=== PATIENT | female | born 1945 | race American Indian/Alaskan Native ===

== ENCOUNTER 2020-01-11 10:00 | Inpatient (IN) | payer MEDICARE ==
[2020-01-11] MEDS ORDERED: cefTRIAXone/NS 1 GM/50 ML 1 GM/50 ML BAG IV ONE (14:39)
[2020-01-11] MEDS ORDERED: LIDOCAINE 2%/EPINEPHRINE 1:100,000 VIAL (20 ML) INFILTRATI ONE (16:33)
[2020-01-11] MEDS ORDERED: ASPIRIN 325 MG TAB ONE (17:02)
[2020-01-11] MEDS ORDERED: ONDANSETRON 4 MG/2 ML INJ IV PRN (19:53)
[2020-01-11] MEDS ORDERED: ALBUTEROL 2.5 MG/3 ML NEBU IH PRN (19:53)
--- NOTE | 2020-01-11 19:53 | History and Physical Report ---
History of Present Illness Chief complaint: She is more confused History of present illness: 74 YO Female with HTN, CAD S/P CABG, HLD, DM presents to ED for evaluation. Patient is confused and lethargic at the time of my evaluation and is unable to provide history. Patient history obtained from family who is at the bedside during exam and interview. As per family the patient had experienced increased confusion, as well as increased agitation over the past 2 weeks with worsening symptoms over the past 4 days. Patient is currently dependent 6/6 for assistance with activities of daily living, and has increased bedbound status with the palliative performance score of 40%. EMS was notified and upon arrival the patient was found to be in distress and simply transported to [facility] for further care and evaluation. Patient seen and evaluated in the emergency department. Lab and imaging studies reviewed. Patient was found to have metabolic encephalopathy, urinary tract infection, as well as volume depletion. Patient also exhibits findings consistent with vascular dementia with behavioral disturbance. Patient admitted to medical floor and initiated on IV antibiotic therapy. No reports of fever, chills, chest pain, palpitation, productive cough, skin rash, recent ill contacts, or known exposure to COVID-19. Advanced care planning conducted in ED. H Past History Past Medical History: CAD, diabetes, hypertension, hyperlipidemia, other (See HPI) Past Surgical History: appendectomy, cholecystectomy, CABG, , Other (Pacemaker placement) Social history: single. denies: smoking, alcohol abuse, prescription drug abuse Family history: diabetes, hypertension Review of Systems ROS unobtainable: due to mental status Exam - Constitutional General appearance: Present: mild distress - EENT Eyes: Present: PERRL ENT: clear oral mucosa, hearing decreased - Neck Neck: Present: supple, normal ROM - Respiratory Respiratory effort: normal Respiratory: bilateral: CTA - Cardiovascular Heart Sounds: Present: S1 & S2. Absent: rub, click - Extremities Extremities: pulses symmetrical, No edema Peripheral Pulses: within normal limits - Abdominal General gastrointestinal: Present: soft, non-tender, non-distended, normal bowel sounds Female genitourinary: Present: normal - Integumentary Integumentary: Present: clear, warm, dry - Musculoskeletal Musculoskeletal: gait normal, strength equal bilaterally - Psychiatric Psychiatric: appropriate mood/affect, intact judgment & insight - Neurologic Neurologic: CNII-XII intact, moves all extremities Assessment and Plan - Patient Problems (1) Metabolic encephalopathy Current Visit: Yes Status: Acute Plan to address problem: CT head, neuro check, seizure precautions, aspiration precautions, fall precautions, treat urinary tract infection, IV fluid resuscitation therapy, (2) Urinary tract infection Current Visit: Yes Status: Acute Qualifiers: Encounter type: initial encounter Plan to address problem: CBC, CMP, urinalysis, IV antibiotic therapy, (3) Volume depletion Current Visit: Yes Status: Acute Plan to address problem: IV fluid resuscitation therapy, encourage free water intake when awake and alert only. (4) Vascular dementia with behavioral disturbance Current Visit: Yes Status: Acute Plan to address problem: Verbal prompting, verbal redirection, benzodiazepine therapy as clinically indicated. (5) Cerebral atherosclerosis Current Visit: Yes Status: Acute Plan to address problem: Supportive care, antiplatelet therapy, risk factor reduction. (6) DVT prophylaxis Current Visit: Yes Status: Acute Plan to address problem: SCD to bilateral lower extremities while in bed, prophylactic anticoagulation.
[2020-01-12] MEDS: ACETAMINOPHEN 325 MG TAB PO PRN ×2 (05:41→15:53)
[2020-01-12] MEDS: VALPROIC ACID 250 MG CAP PO SCH ×3 (05:42→21:49)
[2020-01-12] MEDS ORDERED: ONDANSETRON 4 MG/2 ML INJ IV PRN (07:52)
--- NOTE | 2020-01-12 07:52 | Progress Note ---
Assessment and Plan Assessment and plan: 74 YO Female with HTN, CAD S/P CABG, HLD, DM presents to ED for evaluation. Patient is confused and lethargic at the time of my evaluation and is unable to provide history. Patient history obtained from family who is at the bedside during exam and interview. As per family the patient had experienced increased confusion, as well as increased agitation over the past 2 weeks with worsening symptoms over the past 4 days. Patient is currently dependent 6/6 for assistance with activities of daily living, and has increased bedbound status with the palliative performance score of 40%. EMS was notified and upon arrival the patient was found to be in distress and simply transported to [facility] for further care and evaluation. Patient seen and evaluated in the emergency department. Lab and imaging studies reviewed. Patient was found to have metabolic encephalopathy, urinary tract infection, as well as volume depletion. Patient also exhibits findings consistent with vascular dementia with behavioral disturbance. Patient admitted to medical floor and initiated on IV antibiotic therapy. No reports of fever, chills, chest pain, palpitation, productive cough, skin rash, recent ill contacts, or known exposure to COVID-19. Advanced care planning conducted in ED. Acute chest pain secondary to angina: Patient with significant cardiac history acute metabolic encephalopathy now resolving Dysuria with possible acute cystitis Volume depletion: Per son patient drinks no water Vascular dementia with behavioral disturbance Cerebral atherosclerosis Possible seizure disorder patient is on Keppra Gait abnormality requires a walker. 01/12/20: complains of Left Flank pain, while she says that this is intermittent and rates it 5/10 in intensity she denies any dysuria or fever. She did not mention abdominal pain or chest pain but when I asked her she says it is all of it. I did call her son who confirms that the patient is ambulatory with and without a walker but has recurrent chest discomfort prompting presentation to the ED yesterday as the pain was 10/10 according to her at home. She normally follows at [facility]. We will proceed with cardiology consultation to evaluate chest pain and cardiac work-up protocol. We will request records from [place] facilities Will resume home medications considering elevated blood pressure this morning. Continue antibiotics for possible UTI. If improved in a.m. as anticipated will likely be able to discharge. Plan of care discussed with the son. DVT and GI prophylaxis History Interval history: Patient seen and examined today, complains of Left Flank pain, while she says th at this is intermittent and rates it 5/10 in intensity she denies any dysuria or fever. She did not mention abdominal pain or chest pain but when I asked her she says it is all of it. I did call her son who confirms that the patient is ambulatory with and without a walker but has recurrent chest discomfort prompting presentation to the ED yesterday as the pain was 10/10 according to her at home. She normally follows at [facility] Physical - Physical exam Narrative exam: VITAL SIGNS: Reviewed. GENERAL: The patient appears normally developed, otherwise mildly lethargic. Vital signs as documented. HEAD: No signs of head trauma. EYES: Pupils are equal. Extraocular motions intact. EARS: Hearing grossly intact. MOUTH: Oropharynx is normal. NECK: No adenopathy, no JVD. CHEST: Chest with clear breath sounds bilaterally. No wheezes, rales, or rhonchi. CARDIAC: Regular rate and rhythm. S1 and S2, without murmurs, gallops, or rubs. VASCULAR: No Edema. Peripheral pulses normal and equal in all extremities. ABDOMEN: Left flank tenderness. Soft, no gross abdominal tenderness. And non distended. No rebound or guarding, and no masses palpated. Bowel Sounds normal. MUSCULOSKELETAL: Good range of motion of all major joints. Extremities without clubbing, cyanosis or edema. NEUROLOGIC EXAM: Alert and oriented x 3 No focal sensory or strength deficits. Speech normal. Follows commands. PSYCHIATRIC: Mood normal. SKIN: detail exam as documented in skin assessment - Constitutional Vitals: Temp Pulse Resp BP Pulse Ox 97.8 F 60 16 183/79 99 01/12/20 05:04 01/12/20 05:04 01/12/20 05:04 01/12/20 05:04 01/12/20 05:04 General appearance: Present: mild distress Results - Labs Microbiology: Microbiology 01/11/20 11:52 Peripheral/Venous Blood Culture - Preliminary Culture in Progress 01/11/20 11:52 Peripheral/Venous Blood Culture - Preliminary Culture in Progress Ga/IV: Voiding Method Bedpan IV Catheter Type [Left INT / Saline Lock External Jugular] Active Medications - Current Medications Current Medications: Generic Name Dose Route Start Last Admin Trade Name Freq PRN Reason Stop Dose Admin Acetaminophen 650 mg 01/11/20 19:53 01/12/20 05:41 Tylenol PO 650 mg Q4H PRN Administration Pain MILD(1-3)/Fever >100.5/BONNER Albuterol 2.5 mg 01/11/20 19:53 Proventil IH Q4HRT PRN Shortness Of Breath Atorvastatin Calcium 40 mg 01/12/20 10:00 Lipitor PO DAILY [facility] Carvedilol 6.25 mg 01/12/20 10:00 Coreg PO BID [facility] Furosemide 20 mg 01/12/20 10:00 Lasix PO QDAY [facility] Heparin Sodium (Porcine) 5,000 unit 01/12/20 10:00 Heparin SUB-Q Q12HR [facility] Ceftriaxone Sodium 1 gm in 50 mls @ 100 mls/hr 01/12/20 10:00 Rocephin/Ns 1 Gm/50 Ml IV Q24HR [facility] Protocol Levetiracetam 1,500 mg 01/12/20 10:00 Keppra PO BID [facility] Lorazepam 1 mg 01/12/20 10:00 Ativan PO BID [facility] Melatonin 10 mg 01/12/20 22:00 Melatonin PO QHS [facility] Metformin HCl 500 mg 01/12/20 08:00 Glucophage PO QDDIAB [facility] Miscellaneous Medication 8 mg 01/12/20 22:00 Ramelteon PO HS [facility] Naproxen 500 mg 01/12/20 10:00 Naproxen PO BID [facility] Nitroglycerin 0.4 mg 01/12/20 08:00 Nitrostat SL PRN [facility] Ondansetron HCl 4 mg 01/11/20 19:53 Zofran IV Q8H PRN Nausea And Vomiting Pantoprazole Sodium 40 mg 01/12/20 10:00 Protonix PO DAILY [facility] Ranolazine 500 mg 01/12/20 10:00 Ranexa Er PO BID [facility] Sodium Chloride 10 ml 01/11/20 22:00 01/12/20 03:39 Sodium Chloride Flush Syringe 10 Ml IV 10 ml BID [facility] Administration Sodium Chloride 10 ml 01/11/20 19:53 Sodium Chloride Flush Syringe 10 Ml IV PRN PRN LINE FLUSH Trazodone HCl 25 mg 01/12/20 22:00 Desyrel PO HS [facility] Valproic Acid 750 mg 01/12/20 06:00 01/12/20 05:42 Depakene PO 750 mg Q8HR [facility] Administration
[2020-01-12] MEDS: metFORMIN 500 MG TAB PO SCH (10:43)
[2020-01-12] MEDS: FUROSEMIDE 20 MG TAB PO SCH ×2 (10:44→14:51)
[2020-01-12] MEDS: carvediloL 6.25 MG TAB PO SCH ×3 (10:44→21:49)
[2020-01-12] MEDS: NAPROXEN 500 MG TAB PO SCH ×2 (10:44→14:49)
[2020-01-12] MEDS: levETIRAcetam 500 MG TAB PO SCH ×3 (10:44→21:49)
[2020-01-12] MEDS: HEPARIN 5,000 UNIT/1 ML VIAL SUB-Q SCH ×2 (10:44→21:49)
[2020-01-12] MEDS: LORazepam 1 MG TAB PO SCH ×2 (10:44→21:55)
[2020-01-12] MEDS: PANTOPRAZOLE 40 MG TAB PO SCH ×2 (10:45→14:51)
[2020-01-12] MEDS: RANOLAZINE ER 500 MG TAB 12HR PO SCH ×3 (10:45→21:49)
--- NOTE | 2020-01-12 11:33 | Consultation ---
History of Present Illness Consult date: 01/12/20 Requesting physician: JOHNNY CHAMBERS Consult reason: chest pain History of present illness: The pt is a 74 YO female with a past medical history of HTN, CAD S/P CABG, HLD, DM. She is previously unknown to our practice. She is confused and a poor historian, HPI obtained per the chart. She presented for evaluation of AMS. As per family the patient had experienced increased confusion, as well as increased agitation over the past 2 weeks with worsening symptoms over the past 4 days prior to arrival. EMS was notified and upon arrival the patient was found to be in distress and simply transported to [facility] for further care and evaluation. Patient seen and evaluated in the emergency department. Lab and imaging studies reviewed. Patient was found to have metabolic encephalopathy, urinary tract infection, as well as volume depletion. Patient also exhibits findings consistent with vascular dementia with behavioral disturbance. Patient admitted to medical floor and initiated on IV antibiotic therapy. Cardiology has been consulted for evaluation of ? chest pain, although no reports of fever, chills, chest pain, palpitation, productive cough, skin rash, recent ill contacts, or known exposure to COVID-19. Past History Past Medical History: CAD, diabetes, hypertension, hyperlipidemia, other (See HPI) Past Surgical History: appendectomy, cholecystectomy, CABG, , Other (Pacemaker placement) Social history: single. denies: smoking, alcohol abuse, prescription drug abuse Family history: diabetes, hypertension Medications and Allergies Allergies Allergy/AdvReac Type Severity Reaction Status Date / Time codeine Allergy Mild Itching Verified 01/12/20 03:31 Penicillins AdvReac Severe Swelling Verified 01/12/20 02:52 Home Medications Medication Instructions Recorded Confirmed Last Taken Type Furosemide [Lasix] 20 mg PO QDAY 01/11/20 01/11/20 Unknown History LORazepam [Lorazepam] 1 mg PO BID 01/11/20 01/11/20 Unknown History Naproxen [Naprosyn TAB] 500 mg PO BID 01/11/20 01/11/20 Unknown History Nitroglycerin [Nitrostat] 0.4 mg SUBLINGUAL PRN 01/11/20 01/11/20 Unknown History Pantoprazole [Protonix TAB] 40 gm PO DAILY 01/11/20 01/11/20 Unknown History Ranolazine ER [Ranexa ER] 500 mg PO BID 01/11/20 01/11/20 Unknown History Valproic Acid [Depakene] 750 mg PO Q8HR 01/11/20 01/11/20 Unknown History levETIRAcetam [Keppra TAB] 1,500 mg PO BID 01/11/20 01/11/20 Unknown History metFORMIN [Glucophage] 500 mg PO QDAY 01/11/20 01/11/20 Unknown History traZODone [Desyrel] 25 mg PO HS 01/11/20 01/11/20 Unknown History AtorvaSTATin [Lipitor] 40 mg PO DAILY 01/12/20 01/12/20 Unknown History Ramelteon 8 mg PO HS 01/12/20 01/12/20 Unknown History carvediloL [Coreg] 6.25 mg PO BID 01/12/20 01/12/20 Unknown History Active Meds: Active Medications Acetaminophen (Tylenol) 650 mg PO Q4H PRN PRN Reason: Pain MILD(1-3)/Fever >100.5/BONNER Last Admin: 01/12/20 05:41 Dose: 650 mg Documented by: Albuterol (Proventil) 2.5 mg IH Q4HRT PRN PRN Reason: Shortness Of Breath Atorvastatin Calcium (Lipitor) 40 mg PO DAILY [facility] Last Admin: 01/12/20 10:44 Dose: Not Given Documented by: Carvedilol (Coreg) 6.25 mg PO BID [facility] Last Admin: 01/12/20 10:44 Dose: Not Given Documented by: Furosemide (Lasix) 20 mg PO QDAY [facility] Last Admin: 01/12/20 10:44 Dose: Not Given Documented by: Heparin Sodium (Porcine) (Heparin) 5,000 unit SUB-Q Q12HR [facility] Last Admin: 01/12/20 10:44 Dose: Not Given Documented by: Ceftriaxone Sodium (Rocephin/Ns 1 Gm/50 Ml) 1 gm in 50 mls @ 100 mls/hr IV Q24HR [facility]; Protocol Levetiracetam (Keppra) 1,500 mg PO BID [facility] Last Admin: 01/12/20 10:44 Dose: Not Given Documented by: Lorazepam (Ativan) 1 mg PO BID [facility] Last Admin: 01/12/20 10:44 Dose: Not Given Documented by: Melatonin (Melatonin) 10 mg PO QHS [facility] Metformin HCl (Glucophage) 500 mg PO QDDIAB [facility] Last Admin: 01/12/20 10:43 Dose: Not Given Documented by: Miscellaneous Medication (Ramelteon) 8 mg PO HS [facility] Naproxen (Naproxen) 500 mg PO BID [facility] Last Admin: 01/12/20 10:44 Dose: Not Given Documented by: Nitroglycerin (Nitrostat) 0.4 mg SL PRN [facility] Ondansetron HCl (Zofran) 4 mg IV Q4H PRN PRN Reason: Nausea And Vomiting Pantoprazole Sodium (Protonix) 40 mg PO DAILY [facility] Last Admin: 01/12/20 10:45 Dose: Not Given Documented by: Ranolazine (Ranexa Er) 500 mg PO BID [facility] Last Admin: 01/12/20 10:45 Dose: Not Given Documented by: Sodium Chloride (Sodium Chloride Flush Syringe 10 Ml) 10 ml IV BID [facility] Last Admin: 01/12/20 03:39 Dose: 10 ml Documented by: Sodium Chloride (Sodium Chloride Flush Syringe 10 Ml) 10 ml IV PRN PRN PRN Reason: LINE FLUSH Trazodone HCl (Desyrel) 25 mg PO HS [facility] Valproic Acid (Depakene) 750 mg PO Q8HR [facility] Last Admin: 01/12/20 05:42 Dose: 750 mg Documented by: Review of Systems ROS unobtainable: due to mental status Physical Examination Vital Signs Pulse Resp BP Pulse Ox 68 18 125/60 96 01/11/20 20:36 01/11/20 20:36 01/11/20 20:36 01/11/20 20:36 General appearance: no acute distress HEENT: Positive: PERRL, Normocephaly, Mucus Membranes Moist Neck: Positive: neck supple, trachea midline Cardiac: Positive: Reg Rate and Rhythm, S1/S2 Lungs: Positive: Decreased Breath Sounds Neuro: Positive: Grossly Intact Abdomen: Negative: Tender Skin: Negative: Rash Musculoskeletal: No Pain Extremities: Absent: edema Results - Imaging and Cardiology EKG: report reviewed, image reviewed Assessment and Plan Pt with no current chest pain, ECG with NSR and NAF. Obtain Riley and echocardiogram. Cont current cardiac regimen. Will follow. The patient has been seen in conjunction with Dr. Granado who agrees with the assessment and plan of care. - Patient Problems (1) Altered mental status Current Visit: Yes Status: Acute (2) Urinary tract infection Current Visit: Yes Status: Acute Qualifiers: Encounter type: initial encounter (3) Dementia Current Visit: Yes Status: Suspected (4) CAD (coronary artery disease) Current Visit: Yes Status: Acute (5) History of coronary artery bypass graft Current Visit: Yes Status: Acute (6) HTN (hypertension) Current Visit: Yes Status: Chronic (7) Hyperlipidemia Current Visit: Yes Status: Chronic (8) Diabetes Current Visit: Yes Status: Chronic
[2020-01-12] MEDS: cefTRIAXone/NS 1 GM/50 ML 1 GM/50 ML BAG IV SCH (14:54)
--- NOTE | 2020-01-12 16:34 | Cat Scan Report ---
CT BRAIN: 01/11/2020 INDICATION / CLINICAL INFORMATION: headache . COMPARISON: None available. FINDINGS: BRAIN/INTRACRANIAL STRUCTURES: Unenhanced CT images of the brain demonstrate no evidence of acute int racranial abnormality. Ventricles and sulci are within normal limits of size and shape for a patient of this age. There is no evidence of acute ischemic injury, hemorrhage, or mass. There are no abnormal extra-axial fluid collections. 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 IMPRESSION: No acute abnormality. All CT scans at this location are performed using dose reduction to ALARA by means of automated expos ure control. Signer Name: Fabrice Pichardo MD Signed: 01/11/2020 3:59 PM Workstation Name: [id number]
[2020-01-12] MEDS ORDERED: hydrALAZINE 20 MG/1 ML INJ IV ONE ×2 (20:15→22:44)
[2020-01-12] MEDS ORDERED: RAMELTEON 8 MG PO SCH (22:00)
[2020-01-12] MEDS ORDERED: MELATONIN 5 MG TAB PO SCH (22:00)
[2020-01-12] MEDS ORDERED: MELATONIN 8 MG PO SCH (22:00)
[2020-01-12] MEDS ORDERED: traZODone 50 MG TAB PO SCH (22:00)
[2020-01-13] MEDS: NITROGLYCERIN 0.4 MG TAB SUBL SL SCH ×2 (00:12→00:17)
[2020-01-13] MEDS: NAPROXEN 500 MG TAB PO SCH ×2 (00:42→10:20)
[2020-01-13] MEDS: LORazepam 1 MG TAB PO SCH ×2 (00:42→12:52)
--- NOTE | 2020-01-13 01:16 | XRay Report ---
CHEST 1 VIEW 12:31 AM INDICATION / CLINICAL INFORMATION: Chest pain. COMPARISON: 01/11/2020. FINDINGS: SUPPORT DEVICES: The position of the multilead left subclavian ICD has not changed. HEART / MEDIASTINUM: Median sternotomy and cardiomegaly are again noted. The aorta is normal in calib er. Pulmonary vasculature is normal. LUNGS / PLEURA: No significant pulmonary or pleural abnormality. No pneumothorax. ADDITIONAL FINDINGS: No significant additional findings. IMPRESSION: No acute abnormality or significant change. Signer Name: Addy Giles MD Signed: 01/13/2020 1:11 AM Workstation Name: [id number]
[2020-01-13 03:24] LABS: Hematocrit 33.4 % (30.3-42.9); Hemoglobin 10.6 gm/dl (10.1-14.3); Mean Corpuscular HGB Conc 32 % (30-34); Mean Corpuscular Volume 85 fl (79-97); Platelet Count 166 K/mm3 (140-440); Red Blood Count 3.94 M/mm3 (3.65-5.03); Red Cell Distribution Width 16.5 % (13.2-15.2)
[2020-01-13 03:30] LABS: Calcium 9.4 mg/dL (8.4-10.2)
[2020-01-13] MEDS: VALPROIC ACID 250 MG CAP PO SCH ×2 (06:01→17:53)
--- NOTE | 2020-01-13 09:55 | XRay Report ---
CHEST 1 VIEW INDICATION: CHEST PAIN.. COMPARISON: 01/11/2020 FINDINGS: Support devices: ICD in satisfactory position. Heart: Moderate cardiomegaly status post previous median sternotomy. Lungs/Pleura: No acute air space or interstitial disease. Additional findings: None. IMPRESSION: Moderate cardiomegaly. Signer Name: Yadiel Monge MD Signed: 01/11/2020 2:58 PM Workstation Name: [id number]
[2020-01-13] MEDS ORDERED: ASPIRIN 81 MG TAB CHEW PO SCH (10:00)
[2020-01-13] MEDS: metFORMIN 500 MG TAB PO SCH (10:20)
[2020-01-13] MEDS: FUROSEMIDE 20 MG TAB PO SCH (10:26)
[2020-01-13] MEDS: levETIRAcetam 500 MG TAB PO SCH (10:27)
[2020-01-13] MEDS: carvediloL 6.25 MG TAB PO SCH (10:27)
[2020-01-13] MEDS: RANOLAZINE ER 500 MG TAB 12HR PO SCH (10:30)
--- NOTE | 2020-01-13 10:34 | Progress Note ---
<AMANDO WILKERSON - Last Filed: 01/13/20 10:46> Objective Vital Signs Temp Pulse Resp BP Pulse Ox 01/13/20 10:27 181/68 01/13/20 03:36 97.9 F 72 16 153/55 100 01/13/20 00:29 83 18 104/52 99 01/13/20 00:19 84 18 111/54 100 01/13/20 00:08 78 18 133/58 100 01/12/20 22:41 65 18 165/57 100 01/12/20 20:29 98.0 F 61 18 175/77 98 01/12/20 16:55 98.3 F 58 L 15 191/77 98 01/12/20 11:49 98.0 F 63 16 198/68 98 - Labs and Meds CBC 01/13/20 Range/Units 01:35 WBC 4.9 (4.5-11.0) K/mm3 RBC 3.94 (3.65-5.03) M/mm3 Hgb 10.6 (10.1-14.3) gm/dl Hct 33.4 (30.3-42.9) % Plt Count 166 (140-440) K/mm3 Comprehensive Metabolic Panel 01/13/20 Range/Units 01:35 Sodium 145 (137-145) mmol/L Potassium 3.5 L (3.6-5.0) mmol/L Chloride 104.4 (98-107) mmol/L Carbon Dioxide 26 (22-30) mmol/L BUN 23 H (7-17) mg/dL Creatinine 1.1 (0.6-1.2) mg/dL Glucose 127 H (65-100) mg/dL Calcium 9.4 (8.4-10.2) mg/dL <LINA ROBERTSON - Last Filed: 01/13/20 10:52> Assessment and Plan [facility] records reviewed - pt is followed by Dr. Scott Subramanian. tte done 11/2019 was TDS, showed EF 50%,AV tricuspid and thickened, mild LVH, mild MR. LHC done 11/16/2019 showed LM: patent distal LM stent extending into the LCx, LAD: 100% ostial occlusion, LCx: patent stent from ostial LCx extending into OM1 with 50-60% stenosis at the distal end of the stent in OM1, TELLES to LAD graft: patent, RCA: not injected, known occluded, Vein grafts: not injected, known occluded. Impression: Severe [place] CAD with patent TELLES to LAD graft. 50-60% stenosis of OM post stent. Pt has AICD in situ. Pt with no current chest pain, ECG with NSR and NAF. Trop negative for AMI x 1. Currently stable cardiac status. Cont home current cardiac regimen. Nothing further to add from cardiac perspective at this time. Will sign off. Recommend pt follow up with her primary medical social worker at [facility] within 2 weeks of discharge ([phone]). The patient has been seen in conjunction with Dr. Wilkerson who agrees with the assessment and plan of care. - Patient Problems (1) Altered mental status Current Visit: Yes Status: Acute (2) Urinary tract infection Current Visit: Yes Status: Acute Qualifiers: Encounter type: initial encounter (3) Dementia Current Visit: Yes Status: Suspected (4) CAD (coronary artery disease) Current Visit: Yes Status: Acute (5) History of coronary artery bypass graft Current Visit: Yes Status: Acute (6) Automatic implantable cardioverter-defibrillator in situ Current Visit: Yes Status: Chronic (7) HTN (hypertension) Current Visit: Yes Status: Chronic (8) Hyperlipidemia Current Visit: Yes Status: Chronic (9) Diabetes Current Visit: Yes Status: Chronic Subjective Date of service: 01/13/20 Principal diagnosis: AMS Interval history: Pt resting in bed, more alert today, feeling better, eating breakfast. tele reviewed - in SR HR 70s with intermittent VPacing. Objective Last Vital Signs Temp 97.9 F 01/13/20 03:36 Pulse 72 01/13/20 03:36 Resp 16 01/13/20 03:36 BP 181/68 01/13/20 10:27 Pulse Ox 100 01/13/20 03:36 - Physical Examination General: No Apparent Distress HEENT: Positive: PERRL, Normocephaly, Mucus Membranes Moist Neck: Positive: neck supple, trachea midline Cardiac: Positive: Reg Rate and Rhythm, S1/S2 Lungs: Positive: Decreased Breath Sounds Neuro: Positive: Grossly Intact Abdomen: Negative: Tender Skin: Negative: Rash Musculoskeletal: No Pain Extremities: Absent: edema - Labs and Meds CBC 01/13/20 Range/Units 01:35 WBC 4.9 (4.5-11.0) K/mm3 RBC 3.94 (3.65-5.03) M/mm3 Hgb 10.6 (10.1-14.3) gm/dl Hct 33.4 (30.3-42.9) % Plt Count 166 (140-440) K/mm3 Comprehensive Metabolic Panel 01/13/20 Range/Units 01:35 Sodium 145 (137-145) mmol/L Potassium 3.5 L (3.6-5.0) mmol/L Chloride 104.4 (98-107) mmol/L Carbon Dioxide 26 (22-30) mmol/L BUN 23 H (7-17) mg/dL Creatinine 1.1 (0.6-1.2) mg/dL Glucose 127 H (65-100) mg/dL Calcium 9.4 (8.4-10.2) mg/dL - Imaging and Cardiology EKG: report reviewed, image reviewed
[2020-01-13] MEDS: cefTRIAXone/NS 1 GM/50 ML 1 GM/50 ML BAG IV SCH (10:35)
[2020-01-13] MEDS: PANTOPRAZOLE 40 MG TAB PO SCH (10:35)
[2020-01-13 10:50] LABS: BUN/Creatinine Ratio 26; Blood Urea Nitrogen 31 mg/dL (7-17)
[2020-01-13 10:51] LABS: Alanine Aminotransferase 6 units/L (7-56); Albumin 3.8 g/dL (3.9-5); Calcium 9.7 mg/dL (8.4-10.2); Creatine Kinase MB 2.1 ng/mL (0.0-4.0); Hemolysis Index 3
[2020-01-13 12:01] VITALS: BP 168/68
[2020-01-13] MEDS: HEPARIN 5,000 UNIT/1 ML VIAL SUB-Q SCH (12:52)
--- NOTE | 2020-01-13 14:19 | Discharge Summary ---
Providers - Providers Date of Admission: 01/11/20 19:53 Attending physician: JOHNNY CHAMBERS MD 01/12/20 08:01 Consult to Physician [CONS] Routine Comment: Consulting Provider: DIEUDONNE LE Physician Instructions: Reason For Exam: chest pain Occupational Therapy Evaluate and Treat [CONS] Routine Comment: Reason For Exam: debility Physical Therapy Evaluation and Treat [CONS] Routine Comment: Reason For Exam: debility Primary care physician: [facility] [employer] Hospitalization Reason for admission: Generalized body ache including chest pain Condition: Stable Hospital course: 74 YO Female with HTN, CAD S/P CABG, HLD, DM presents to ED for evaluation. Patient is confused and lethargic at the time of my evaluation and is unable to provide history. Patient history obtained from family who is at the bedside during exam and interview. As per family the patient had experienced increased confusion, as well as increased agitation over the past 2 weeks with worsening symptoms over the past 4 days. Patient is currently dependent 6/6 for assistance with activities of daily living, and has increased bedbound status with the palliative performance score of 40%. EMS was notified and upon arrival the patient was found to be in distress and simply transported to [facility] for further care and evaluation. Patient seen and evaluated in the emergency department. Lab and imaging studies reviewed. Patient was found to have metabolic encephalopathy, urinary tract infection, as well as volume depletion. Patient also exhibits findings consistent with vascular dementia with behavioral disturbance. Patient admitted to medical floor and initiated on IV antibiotic therapy. No reports of fever, chills, chest pain, palpitation, p roductive cough, skin rash, recent ill contacts, or known exposure to COVID-19. Advanced care planning conducted in ED. Acute chest pain secondary to angina: Patient with significant cardiac history acute metabolic encephalopathy now resolving Dysuria with possible acute cystitis Acute metabolic encephalopathy transient.baseline Volume depletion: Per son patient drinks no water Vascular dementia with behavioral disturbance Coronary artery disease status post AICD Cerebral atherosclerosis Possible seizure disorder patient is on Keppra Gait abnormality requires a walker. 01/12/20: complains of Left Flank pain, while she says that this is intermittent and rates it 5/10 in intensity she denies any dysuria or fever. She did not mention abdominal pain or chest pain but when I asked her she says it is all of it. I did call her son who confirms that the patient is ambulatory with and without a walker but has recurrent chest discomfort prompting presentation to the ED yesterday as the pain was 10/10 according to her at home. She normally follows at [facility], [place]. We will proceed with cardiology consultation to evaluate chest pain and cardiac work-up protocol. We will request records from [facility] facilities Will resume home medications considering elevated blood pressure this morning. Continue antibiotics for possible UTI. If improved in a.m. as anticipated will likely be able to discharge. Plan of care discussed with the son. DVT and GI prophylaxis 01/12: Patient was evaluated by cardiology on as noted below. Otherwise she is clinically stable much improved today no further pain. She was treated for 2 days empirically for acute cystitis. Have discussed with the son and informed him of our findings. [facility] records reviewed - pt is followed by Dr. Scott Subramanian. tte done 11/2019 was TDS, showed EF 50%,AV tricuspid and thickened, mild LVH, mild MR. LHC done 11/16/2019 showed LM: patent distal LM stent extending into the LCx, LAD: 100% ostial occlusion, LCx: patent stent from ostial LCx extending into OM1 with 50-60% stenosis at the distal end of the stent in OM1, TELLES to LAD graft: patent, RCA: not injected, known occluded, Vein grafts: not injected, known occluded. Impression: Severe [place] CAD with patent TELLES to LAD graft. 50-60% stenosis of OM post stent. Pt has AICD in situ. Pt with no current chest pain, ECG with NSR and NAF. Trop negative for AMI x 1. Currently stable cardiac status. Cont home current cardiac regimen. Nothing further to add from cardiac perspective at this time. Will sign off. Recommend pt follow up with her primary fish drier at [facility] within 2 weeks of discharge ([phone]). Disposition: [id number] HOME UNDER HOME [facility] Time spent for discharge: 35 minutes Core Measure Documentation - Palliative Care Palliative Care/ Comfort Measures: Not Applicable - Core Measures Any of the following diagnoses?: none Exam - Physical Exam Narrative exam: VITAL SIGNS: Reviewed. GENERAL: The patient appears normally developed, Vital signs as documented. HEAD: No signs of head trauma. EYES: Pupils are equal. Extraocular motions intact. EARS: Hearing grossly intact. MOUTH: Oropharynx is normal. NECK: No adenopathy, no JVD. CHEST: Chest with clear breath sounds bilaterally. No wheezes, rales, or rhonchi. CARDIAC: Regular rate and rhythm. S1 and S2, without murmurs, gallops, or rubs. VASCULAR: No Edema. Peripheral pulses normal and equal in all extremities. ABDOMEN: Left flank tenderness. Soft, no gross abdominal tenderness. And non distended. No rebound or guarding, and no masses palpated. Bowel Sounds normal. MUSCULOSKELETAL: Good range of motion of all major joints. Extremities without clubbing, cyanosis or edema. NEUROLOGIC EXAM: Alert and oriented x 3 No focal sensory or strength deficits. Speech normal. Follows commands. PSYCHIATRIC: Mood normal. SKIN: detail exam as documented in skin assessment - Constitutional Vitals: Temp Pulse Resp BP Pulse Ox 97.9 F 64 20 168/68 100 01/13/20 11:23 01/13/20 11:23 01/13/20 11:23 01/13/20 11:23 01/13/20 11:23 Plan Activity: advance as tolerated, fall precautions Diet: low fat, diabetic Special Instructions: record daily weights, record daily BP diary, record blood sugar diary Additional Instructions: Follow with primary fish drier at [facility] in 1 week Follow up with: PRIMARY CAREMD [Primary Care Provider] - 7 Days Prescriptions: Aspirin [Aspirin BABY CHEW TAB] 81 mg PO QDAY #30 tab.chew Ciprofloxacin HCl [Ciprofloxacin TAB] 500 mg PO Q12HR #6 tab
--- NOTE | 2020-02-26 06:43 | Event Note ---
Date: 01/11/20 Please note that this chart is being documented for the purposes of medical record keeping, this is a duplicate chart from the original downtime chart. Prince Doshi : 1945 date of service: 01/11/2020 The patient was evaluated in the emergency department for symptoms described in the history of present illness. He/she was evaluated in the context of the global COVID-19 pandemic, which necessitated consideration that the patient might be at risk for infection with the virus that causes COVID-19. Institutional protocols and algorithms that pertain to the evaluation of patients at risk for COVID-19 are in a state of rapid change based on information released by regulatory bodies including the CDC and federal and state organizations. These policies and algorithms were followed during the patient's care in the emergency department. Please note that these policies, procedures and recommendations changed on a rapid basis. EMS documentation not available at time of chart dictation Please note at the time of this chart dictation, medical record system is down secondary to mandatory computer maintenance, therefore, we are not able to access patient's electronic medical record This patient is a 74-year-old female. To the best of my recollection, she is not known to myself previously. Past medical history is unclear, it appears that she may have had a sternotomy for uncertain reasons in the past. The patient is presents to the ER today via EMS. Upon my initial evaluation, patient is speaking very softly, and appears to be altered. The patient is not accompanied by friends or family at this time for additional information and collateral information. Nursing team has triage the patient with a complaint of "complains of chest pain radiating to the left arm, beginning this morning. Pain 10 out of 10 positive nausea. She reportedly received aspirin, nitroglyce rin x2 via EMS. When I evaluate the patient, she denies headache, neck pain and chest pain. She complains of abdominal pain. She indicates her abdominal pain is diffuse. She indicates her pain increases with palpation. She does not describe radiation factors. She does not describe aggravating factors otherwise. The patient makes no complaint of urinary symptoms. The patient makes no complaint of focal extremity weakness/numbness. Patient altered, therefore, I am not able to obtain qualitative nature of symptoms, aggravating factors, relieving factors, except as noted. In addition, review of systems is limited secondary to patient's altered mental status. Nursing team informed me that the patient was initially alert, oriented, and then at one point time during her evaluation, began to speak softly, and answer inappropriately. When the patient was informed by nursing team that she would be diagnosed with altered mental status, nursing team reports that the patient's mentation improved. However, the patient's mentation does not improve on my exam. Nursing team also documented an initial GCS of 15. Review of systems: As per history of present illness Physical exam: Blood pressure 158/92. Heart rate 72 bpm. Respirations: 16/min. Pulse ox: 100% on room air. Temperature: 97.8 F. Weight: 125 pounds. Height, 5 pounds, 5 inches. The patient appeared well nourished and normally developed. Vital signs as documented. Head exam is unremarkable. Normocephalic atraumatic No scleral icterus or corneal arcus noted. Neck is without jugular venous distension, thyromegaly there are no meningeal signs, and the neck is nontender. . Lungs are clear to auscultation and percussion. There is reproducible central chest wall tenderness. There are no rales, rhonchi, or wheezes. . Rhythm is regular. First and second heart sounds normal. No murmurs, rubs or gallops. There is mild diffuse abdominal tenderness. There is no right upper quadrant tenderness. There is no pulsatile abdominal mass. There is no rebound. . 2+ pulses noted in the bilateral upper and lower extremities. There is no palpable cord. negative Homans sign. Muscular compartments are soft. The pelvis is stable. 2+ edema noted in the bilateral lower extremity No facial droop. Tongue midline. Patient closes eyes very tightly when I attempt to examine, no obvious proptosis is noted. Sensation is intact to light touch in 4 extremities. Patient moves 4 extremities to command. Patient is able to give her name, year, and location. No skin redness, pus, streaking, erythema, or breakdown. Laboratory studies: Lactic acid: 1.2 mmol/L Sodium: 144 potassium: 3.6 chloride: 104.7 CO2: 31 anion gap: 12 blood urea nitrogen: 31 creatinine: 1.2 glucose: 130 Calcium: 9.7 total bilirubin: 0.2 AST: 10 t:6 total protein: 6.2 Albumin: 3.8 lipase: 30 ethanol: 10 mg/dL, acetaminophen: 5 mcg/mL Salicylate: 0.42 mg/dL CK: 2.14 ng/mL proBNP: 888.4 pg/mL TSH: 0.768 Urinalysis: 5 RBCs, 53 WBCs, moderate leukocytes, negative nitrites, negative blood, 1 epithelial cell. EKG: No prior EKG available for comparison. Sinus rhythm, 60 bpm, normal axis, normal intervals, poor R wave progression, low voltage in the lateral leads. The EKG is abnormal. The EKG is not a STEMI. Time of interpretation: 11:40 AM. Radiology studies: CHEST 1 VIEW INDICATION: CHEST PAIN.. COMPARISON: 01/11/2020 FINDINGS: Support devices: ICD in satisfactory position. Heart: Moderate cardiomegaly status post previous median sternotomy. Lungs/Pleura: No acute air space or interstitial disease. Additional findings: None. IMPRESSION: Moderate cardiomegaly. Signer Name: Yadiel Monge MD Signed: 01/11/2020 1:58 PM Workstation Name: [id number] All CT scans at this location are performed using the following dose modulation technique: Automated exposure control. Helical slices were obtained through the abdomen and pelvis. No contrast is administered. COMPARISON: None available. FINDINGS: Abdomen: Heart is enlarged. No acute abnormality is seen in the lower chest. There is biliary dilatation. The patient is undergone prior cholecystectomy. There is increased density in the liver. Spleen, pancreas, adrenal glands, and kidneys show no acute abnormality. There is parenchymal calcification in the upper pole the left kidney. There is no hydronephrosis. The wall of the stomach is thickened and there appears to be some wall thickening in the duodenum and proximal jejunum. There is no obstruction. There is no free air. There are no abnormal collections. Pelvis: Calcified fibroid is noted in the uterus. There is no obstruction or inflammation. There are no abnormal fluid collections. The cervix appears prominent. On review of bone windows, no acute osseous abnormalities are seen area IMPRESSION: 1. There is wall thickening noted in the stomach, duodenum and proximal jejunum. This is nonspecific but could represent gastroenteritis. There is mild biliary dilatation. There is increased density in the liver which could be due to hemachromatosis or amiodarone toxicity. There is mild atherosclerotic disease. The cervix appears prominent. Correlation with physical exam is suggested. Signer Name: Martin Calvin MD Signed: 01/11/2020 1:56 PM Workstation Name: [id number] CT BRAIN: 01/11/2020 INDICATION / CLINICAL INFORMATION: headache . COMPARISON: None available. FINDINGS: BRAIN/INTRACRANIAL STRUCTURES: Unenhanced CT images of the brain demonstrate no evidence of acute intracranial abnormality. Ventricles and sulci are within normal limits of size and shape for a patient of this age. There is no evidence of acute ischemic injury, hemorrhage, or mass. There are no abnormal extra-axial fluid collections. 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 IMPRESSION: No acute abnormality. All CT scans at this location are performed using dose reduction to ALARA by means of automated exposure control. Signer Name: Fabrice Pichardo MD Signed: 01/11/2020 2:59 PM Workstation Name: [id number] X-ray of the chest, interpreted by myself: One-view portable chest. Cardiome sury. Status post sternotomy. Left-sided cardiac support device noted. No obvious pneumothorax. No obvious overt CHF. No obvious infiltrate. Procedure note: Peripheral IV access. Nursing team unable to obtain IV access after multiple times. Patient examined by myself, unable to identify suitable IV location and peripheral upper extremities. Left neck is prepped in typical aseptic fashion, and then, anesthetized with 5 cc of 1% lidocaine with epinephrine. Using ultrasound guidance, typical aseptic technique, left internal jugular vein is identified, and an 18-gauge 3 inch Angiocath is inserted into the left internal jugular vein using ultrasound guidance. Appropriate line placement is confirmed with ultrasound guidance, and both ports easily flushed. A blue Biopatch is applied, and line is secured with Tegaderm. Recommend replacing this line within 24 hours for definitive IV placement. Differential diagnosis, including but not limited to: Pneumonia, urinary tract infection, intracranial lesion, intra-abdominal infection, renal insufficiency, hepatic insufficiency, acute coronary syndrome, metabolic crisis Assessment and plan: 74-year-old female with an initial triage complaint of chest pain, to me, appears altered, with a complaint of abdominal pain. However, she is afebrile with reassuring vital signs, protecting her airway, follows commands, has a nonfocal motor exam, and has mild abdominal tenderness. Obtain appropriate laboratory studies, urinalysis, EKG, x-ray the chest, CT scan of the brain, CT scan of the abdomen pelvis, rectal temperature, and reassess. January 11, 2020, 4:[address] scan of the brain negative for acute findings. CT scan of the abdomen pelvis reviewed and appreciated. Urinalysis suggests pyuria. Hospital physician, Dr. Trinh to admit patient to the medical service. Aspirin and ceftriaxone ordered. Patient had temporary IV line placed by myself in the left internal jugular system, was in typical aseptic technique. Please see procedure note. We recommend that this line be replaced within 24 hours with a definitive line/IV. Clinical impression: History of chest pain, pyuria, altered mental status, acute abdominal pain Disposition: Admitted to this hospital. Condition: Good. Vital Signs 01/11/20 01/11/20 01/11/20 20:36 21:56 21:59 Temperature 97.5 F L Pulse Rate 68 69 Respiratory 18 20 Rate Blood Pressure Blood Pressure 125/60 173/80 [Left] O2 Sat by Pulse 96 98 97 Oximetry 01/12/20 01/12/20 01/12/20 05:04 09:04 11:49 Temperature 97.8 F 98.0 F Pulse Rate 60 63 Respiratory 16 16 Rate Blood Pressure 183/79 198/68 Blood Pressure [Left] O2 Sat by Pulse 99 99 98 Oximetry 01/12/20 01/12/20 01/12/20 16:55 20:29 22:41 Temperature 98.3 F 98.0 F Pulse Rate 58 L 61 65 Respiratory 15 18 18 Rate Blood Pressure 191/77 175/77 165/57 Blood Pressure [Left] O2 Sat by Pulse 98 98 100 Oximetry 01/13/20 01/13/20 01/13/20 00:08 00:19 00:29 Temperature Pulse Rate 78 84 83 Respiratory 18 18 18 Rate Blood Pressure 133/58 111/54 104/52 Blood Pressure [Left] O2 Sat by Pulse 100 100 99 Oximetry 01/13/20 01/13/20 01/13/20 03:36 10:27 11:23 Temperature 97.9 F 97.9 F Pulse Rate 72 64 Respiratory 16 20 Rate Blood Pressure 153/55 181/68 168/68 Blood Pressure [Left] O2 Sat by Pulse 100 100 Oximetry Lab Results 01/11/20 01/11/20 01/11/20 Range/Units 11:53 11:53 11:53 WBC (4.5-11.0) K/mm3 RBC (3.65-5.03) M/mm3 Hgb (10.1-14.3) gm/dl Hct (30.3-42.9) % MCV (79-97) fl MCH (28-32) pg MCHC (30-34) % RDW (13.2-15.2) % Plt Count (140-440) K/mm3 Sodium 144 (137-145) mmol/L Potassium 3.7 (3.6-5.0) mmol/L Chloride 104.7 (98-107) mmol/L Carbon Dioxide 31 H (22-30) mmol/L Anion Gap 12 mmol/L BUN 31 H (7-17) mg/dL Creatinine 1.2 (0.6-1.2) mg/dL Estimated GFR 53 ml/min BUN/Creatinine Ratio 26 % Glucose 130 H (65-100) mg/dL POC Glucose (70-105) mg/dL Lactic Acid (0.7-2.0) mmol/L Calcium 9.7 (8.4-10.2) mg/dL Total Bilirubin 0.20 (0.1-1.2) mg/dL AST 10 (5-40) units/L ALT 6 L (7-56) units/L Alkaline Phosphatase 69 (35-129) units/L Total Creatine Kinase 74 (30-135) units/L CK-MB (CK-2) 2.1 (0.0-4.0) ng/mL CK-MB (CK-2) Rel Index 2.8 (0-4) Troponin T < 0.010 (0.00-0.029) ng/mL NT-Pro-B Natriuret Pep 888.4 (0-900) pg/mL Total Protein 6.2 L (6.3-8.2) g/dL Albumin 3.8 L (3.9-5) g/dL Albumin/Globulin Ratio 1.6 % Lipase 30 (13-60) units/L TSH 0.768 (0.270-4.200) mlU/mL Salicylates 0.4 L (2.8-20.0) mg/dL Acetaminophen (10.0-30.0) ug/mL Plasma/Serum Alcohol (0-0.07) % 01/11/20 01/11/20 01/11/20 Range/Units 11:53 11:53 11:53 WBC (4.5-11.0) K/mm3 RBC (3.65-5.03) M/mm3 Hgb (10.1-14.3) gm/dl Hct (30.3-42.9) % MCV (79-97) fl MCH (28-32) pg MCHC (30-34) % RDW (13.2-15.2) % Plt Count (140-440) K/mm3 Sodium (137-145) mmol/L Potassium (3.6-5.0) mmol/L Chloride (98-107) mmol/L Carbon Dioxide (22-30) mmol/L Anion Gap mmol/L BUN (7-17) mg/dL Creatinine (0.6-1.2) mg/dL Estimated GFR ml/min BUN/Creatinine Ratio % Glucose (65-100) mg/dL POC Glucose (70-105) mg/dL Lactic Acid 1.20 (0.7-2.0) mmol/L Calcium (8.4-10.2) mg/dL Total Bilirubin (0.1-1.2) mg/dL AST (5-40) units/L ALT (7-56) units/L Alkaline Phosphatase (35-129) units/L Total Creatine Kinase (30-135) units/L CK-MB (CK-2) (0.0-4.0) ng/mL CK-MB (CK-2) Rel Index (0-4) Troponin T (0.00-0.029) ng/mL NT-Pro-B Natriuret Pep (0-900) pg/mL Total Protein (6.3-8.2) g/dL Albumin (3.9-5) g/dL Albumin/Globulin Ratio % Lipase (13-60) units/L TSH (0.270-4.200) mlU/mL Salicylates (2.8-20.0) mg/dL Acetaminophen < 5.0 L (10.0-30.0) ug/mL Plasma/Serum Alcohol < 0.01 (0-0.07) % 01/13/20 01/13/20 01/13/20 Range/Units 01:35 01:35 01:35 WBC 4.9 (4.5-11.0) K/mm3 RBC 3.94 (3.65-5.03) M/mm3 Hgb 10.6 (10.1-14.3) gm/dl Hct 33.4 (30.3-42.9) % MCV 85 (79-97) fl MCH 27 L (28-32) pg MCHC 32 (30-34) % RDW 16.5 H (13.2-15.2) % Plt Count 166 (140-440) K/mm3 Sodium 145 (137-145) mmol/L Potassium 3.5 L (3.6-5.0) mmol/L Chloride 104.4 (98-107) mmol/L Carbon Dioxide 26 (22-30) mmol/L Anion Gap 18 mmol/L BUN 23 H (7-17) mg/dL Creatinine 1.1 (0.6-1.2) mg/dL Estimated GFR 59 ml/min BUN/Creatinine Ratio 21 % Glucose 127 H (65-100) mg/dL POC Glucose (70-105) mg/dL Lactic Acid (0.7-2.0) mmol/L Calcium 9.4 (8.4-10.2) mg/dL Total Bilirubin (0.1-1.2) mg/dL AST (5-40) units/L ALT (7-56) units/L Alkaline Phosphatase (35-129) units/L Total Creatine Kinase (30-135) units/L CK-MB (CK-2) (0.0-4.0) ng/mL CK-MB (CK-2) Rel Index (0-4) Troponin T < 0.010 (0.00-0.029) ng/mL NT-Pro-B Natriuret Pep (0-900) pg/mL Total Protein (6.3-8.2) g/dL Albumin (3.9-5) g/dL Albumin/Globulin Ratio % Lipase (13-60) units/L TSH (0.270-4.200) mlU/mL Salicylates (2.8-20.0) mg/dL Acetaminophen (10.0-30.0) ug/mL Plasma/Serum Alcohol (0-0.07) % 01/13/20 01/13/20 Range/Units 08:07 11:40 WBC (4.5-11.0) K/mm3 RBC (3.65-5.03) M/mm3 Hgb (10.1-14.3) gm/dl Hct (30.3-42.9) % MCV (79-97) fl MCH (28-32) pg MCHC (30-34) % RDW (13.2-15.2) % Plt Count (140-440) K/mm3 Sodium (137-145) mmol/L Potassium (3.6-5.0) mmol/L Chloride (98-107) mmol/L Carbon Dioxide (22-30) mmol/L Anion Gap mmol/L BUN (7-17) mg/dL Creatinine (0.6-1.2) mg/dL Estimated GFR ml/min BUN/Creatinine Ratio % Glucose (65-100) mg/dL POC Glucose 118 H 172 H (70-105) mg/dL Lactic Acid (0.7-2.0) mmol/L Calcium (8.4-10.2) mg/dL Total Bilirubin (0.1-1.2) mg/dL AST (5-40) units/L ALT (7-56) units/L Alkaline Phosphatase (35-129) units/L Total Creatine Kinase (30-135) units/L CK-MB (CK-2) (0.0-4.0) ng/mL CK-MB (CK-2) Rel Index (0-4) Troponin T (0.00-0.029) ng/mL NT-Pro-B Natriuret Pep (0-900) pg/mL Total Protein (6.3-8.2) g/dL Albumin (3.9-5) g/dL Albumin/Globulin Ratio % Lipase (13-60) units/L TSH (0.270-4.200) mlU/mL Salicylates (2.8-20.0) mg/dL Acetaminophen (10.0-30.0) ug/mL Plasma/Serum Alcohol (0-0.07) % Print Report Referring Physician: LINA ROBERTSON Patient Name: PRINCE DOSHI Date of : 1945 Sex: Female Report Date: 2020-01-11 Report Status: Finalized Findings [facility] [address] [place] [address] Cat Scan Report Signed Patient: PRINCE DOSHI MR#: [id number] : 1945 Acct:[id number] Age/Sex: 74 / F ADM Date: 01/11/20 Loc: 3A A353-[address]: JOHNNY CHAMBERS MD Ordering Physician: NASRIN BOLAÑOS MD Date of Service: 01/11/20 Procedure(s): CT head/brain w con Accession Number(s): [id number] cc: NASRIN BOLAÑOS MD CT BRAIN: 01/11/2020 INDICATION / CLINICAL INFORMATION: headache . COMPARISON: None available. FINDINGS: BRAIN/INTRACRANIAL STRUCTURES: Unenhanced CT images of the brain demonstrate no evidence of acute intracranial abnormality. Ventricles and sulci are within normal limits of size and shape for a patient of this age. There is no evidence of acute ischemic injury, hemorrhage, or mass. There are no abnormal extra-axial fluid collections. 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 IMPRESSION: No acute abnormality. All CT scans at this location are performed using dose reduction to ALARA by means of automated exposure control. Signer Name: Fabrice Pichardo MD Signed: 01/11/2020 3:59 PM Workstation Name: [id number] Transcribed By: AO Dictated By: Fabrice Pichardo MD Electronically Authenticated By: Fabrice Pichardo MD Signed Date/Time: 01/12/20 1633 DD/ 1556 TD/TT: Print Report Referring Physician: NASRIN BOLAÑOS Patient Name: PRINCE DOSHI Date of : 1945 Sex: Female Report Date: 2020-01-11 Report Status: Finalized Findings [facility] [address] [place] [address] XRay Report Signed Patient: PRINCE DOSHI MR#: [id number] : 1945 Acct:[id number] Age/Sex: 74 / F ADM Date: 01/11/20 Loc: 3A A353-[address]: JOHNNY CHAMBERS MD Ordering Physician: NASRIN BOLAÑOS MD Date of Service: 01/11/20 Procedure(s): XR chest 1V ap Accession Number(s): [id number] cc: NASRIN BOLAÑOS MD Fluoro Time In Minutes: CHEST 1 VIEW INDICATION: CHEST PAIN.. COMPARISON: 01/11/2020 FINDINGS: Support devices: ICD in satisfactory position. Heart: Moderate cardiomegaly status post previous median sternotomy. Lungs/Pleura: No acute air space or interstitial disease. Additional findings: None. IMPRESSION: Moderate cardiomegaly. Signer Name: Yadiel Monge MD Signed: 01/11/2020 2:58 PM Workstation Name: [id number] Transcribed By: ES Dictated By: Yadiel Monge MD Electronically Authenticated By: Yadiel Monge MD Signed Date/Time: 01/13/20 0954 DD/ 1457 TD/TT:
== END 2020-01-13 18:00 | disposition home health service (06) | DRG 302 ==
LOC: ED 10:00 → 3A 19:53
PROVIDERS: ADMIT Internal Medicine; ATTEND Internal Medicine
DX: I25.119 Atherosclerotic heart disease of native coronary artery with unspecified angina pectoris (principal); G93.41 Metabolic encephalopathy; N39.0 Urinary tract infection, site not specified; F01.51 Vascular dementia, unspecified severity, with behavioral disturbance; I10 Essential (primary) hypertension; E78.5 Hyperlipidemia, unspecified; E11.9 Type 2 diabetes mellitus without complications; E86.9 Volume depletion, unspecified; I67.2 Cerebral atherosclerosis; G40.909 Epilepsy, unspecified, not intractable, without status epilepticus; Z95.1 Presence of aortocoronary bypass graft; Z90.49 Acquired absence of other specified parts of digestive tract; Z95.810 Presence of automatic (implantable) cardiac defibrillator; Z82.49 Family history of ischemic heart disease and other diseases of the circulatory system; Z83.3 Family history of diabetes mellitus; Z88.5 Allergy status to narcotic agent; Z88.0 Allergy status to penicillin; Z79.899 Other long term (current) drug therapy
CPT/HCPCS: 36415; 70460; 71045; 80048; 80053; 80320; 82140; 82550; 82553; 82962; 83690; 83880; 84443; 84484; 85027; 87040; 93005; 93306; G0378; A9270-GY; G0480; J0360; J0696; J1644; Q9967